=== PATIENT | female | born 1935 | race Caucasian/White ===

== ENCOUNTER 2021-01-15 12:23 | Inpatient (IN) ==
[2021-01-15] MEDS ORDERED: DILTIAZEM 50 MG/10 ML VIAL IV STA (13:44)
[2021-01-15 13:48] LABS: Basophils % 0.4 % (0.0-0.8); Eosinophils # 0.1 10*3/uL (0.0-0.87); Eosinophils % 0.7 % (0.00-10.9); Hematocrit 42.6 VOL% (35.7-47.0); Hemoglobin 13.6 GM/DL (12.0-16.0); Immature Granulocytes % 0.5 %; Immature Granulocytes Absolute 0.05 #; Lymphocytes # 2.9 10*3/uL (1.4-4.0); Mean Corpuscular HGB Conc 31.9 GM/DL (32-36); Mean Corpuscular Volume 94.9 FL (87-102); Mean Platelet Volume 11.8 FL (9.6-12.0); Monocytes % 7.8 % (1.7-12.7); Neutrophils % 63.6 % (38.7-73.9); Platelet Count 272 T/CUMM (130-400); Red Blood Count 4.49 MC/CUMM (3.8-5.5); Red Cell Distribution Width 13.2 % (9.3-17.3); White Blood Count 10.7 T/CUMM (4-12)
[2021-01-15 13:57] LABS: PT Patient Result 10.9 SECS (10.5-12.0)
[2021-01-15] MEDS ORDERED: DILTIAZEM INJ 100 MG in SODIUM CHLORIDE 0.9% 100 ML IV SCH (14:00)
[2021-01-15 14:13] LABS: Albumin 3.8 G/DL (3.4-5.0); Bilirubin,Total 0.4 MG/DL (0.2-1.0); Calcium 9.4 MG/DL (8.5-10.1); Osmolality,Calculated 275.7 MOS/KG (273-304); Potassium 4.6 MMOL/L (3.5-5.1); Thyroid Stimulating Hormone 1.64 uIU/ml (0.358-3.74); Total Protein 6.8 G/DL (6.4-8.2)
[2021-01-15] MEDS ORDERED: MAGNESIUM SULF RIDER 4 GM/100 ML PREMIX IV PRN (14:35)
[2021-01-15] MEDS ORDERED: MAGNESIUM SULF RIDER 2 GM/50 ML PREMIX IV PRN (14:35)
[2021-01-15] MEDS ORDERED: diphenhydrAMINE CAP 25 MG CAPSULE PO PRN (14:57)
[2021-01-15] MEDS ORDERED: ZALEPLON 5 MG CAPSULE PO PRN (14:57)
[2021-01-15] MEDS ORDERED: SIMETHICONE CHEW 125 MG TABLET PO PRN (14:57)
[2021-01-15] MEDS ORDERED: ONDANSETRON 4 MG/2 ML VIAL IV PRN (14:57)
[2021-01-15] MEDS ORDERED: SODIUM CHLORIDE 0.45% 1,000 ML IV SCH (15:00)
[2021-01-15] MEDS ORDERED: DIGOXIN 0.5 MG/2 ML AMP IV STA (15:01)
[2021-01-15] MEDS: ASCORBIC ACID 500 MG TABLET PO SCH ×2 (17:00→21:51)
[2021-01-15] MEDS: DILTIAZEM 30 MG TABLET PO SCH ×2 (17:01→17:37)
[2021-01-15] MEDS ORDERED: traMADol 50 MG TABLET PO PRN (17:01)
[2021-01-15] MEDS ORDERED: LACTULOSE 20 GM/30 ML UDCUP PO PRN (17:40)
[2021-01-15 17:44] LABS: Bilirubin,Urine Negative (Negative); Blood, Urine Small mg/dL (Negative); Glucose,Urine (UA) Negative (Negative); Ketones,Urine Negative (Negative); Nitrite,Urine Negative (Negative); Protein,Urine Negative; RBC,Urine 1 /HPF (0-4); Urine Appearance CLEAR (Clear); Urine Color Colorless (Yellow); Urine Specific Gravity 1.004 (1.001-1.035); Urine Urobilinogen < 2.0 EU/DL (0.2-1.0)
[2021-01-16] MEDS: DILTIAZEM 30 MG TABLET PO SCH ×5 (01:22→17:00)
[2021-01-16 05:34] LABS: Basophils % 0.5 % (0.0-0.8); Eosinophils # 0.1 10*3/uL (0.0-0.87); Eosinophils % 0.9 % (0.00-10.9); Hematocrit 40.8 VOL% (35.7-47.0); Hemoglobin 13.2 GM/DL (12.0-16.0); Immature Granulocytes % 0.2 %; Immature Granulocytes Absolute 0.02 #; Lymphocytes # 3.2 10*3/uL (1.4-4.0); Lymphocytes % 36.4 % (21.3-54.2); Mean Corpuscular HGB Conc 32.4 GM/DL (32-36); Mean Corpuscular Volume 92.5 FL (87-102); Mean Platelet Volume 11.6 FL (9.6-12.0); Monocytes % 7.6 % (1.7-12.7); Neutrophils % 54.4 % (38.7-73.9); Platelet Count 236 T/CUMM (130-400); Red Blood Count 4.41 MC/CUMM (3.8-5.5); Red Cell Distribution Width 13.1 % (9.3-17.3); White Blood Count 8.7 T/CUMM (4-12)
[2021-01-16 06:04] LABS: Calcium 9.5 MG/DL (8.5-10.1); Osmolality,Calculated 282.1 MOS/KG (273-304); Potassium 4.3 MMOL/L (3.5-5.1)
[2021-01-16 06:20] LABS: Alanine Aminotransferase 29 U/L (13-56); Albumin 3.8 G/DL (3.4-5.0); Alkaline Phosphatase 71 U/L (45-117); Aspartate Amino Transferase 17 U/L (0-37); Bilirubin,Total < 0.39 MG/DL (0.2-1.0); Blood Urea Nitrogen 16 MG/DL (7-18); Calcium 9.6 MG/DL (8.5-10.1); Carbon Dioxide 26 MMOL/L (21-32); Estimated Glom Filtration Rate 68 ML/MIN; Glucose 83 MG/DL (74-106); Osmolality,Calculated 282.1 MOS/KG (273-304); Potassium 4.2 MMOL/L (3.5-5.1); Sodium 142 MMOL/L (136-145)
[2021-01-16] MEDS: ASPIRIN CHEW 81 MG TABLET PO SCH (08:31)
[2021-01-16] MEDS: PANTOPRAZOLE 40 MG TABLET PO SCH (08:31)
[2021-01-16] MEDS: ASCORBIC ACID 500 MG TABLET PO SCH ×2 (08:32→21:30)
[2021-01-16] MEDS: SOTALOL 80 MG TABLET PO SCH ×2 (13:06→21:29)
[2021-01-17] MEDS: DILTIAZEM 30 MG TABLET PO SCH (00:51)
[2021-01-17 06:28] LABS: Basophils # 0.1 10*3/uL (0.0-0.2); Basophils % 0.7 % (0.0-0.8); Eosinophils # 0.1 10*3/uL (0.0-0.87); Eosinophils % 1.5 % (0.00-10.9); Hematocrit 40.8 VOL% (35.7-47.0); Immature Granulocytes % 0.3 %; Immature Granulocytes Absolute 0.02 #; Lymphocytes # 2.6 10*3/uL (1.4-4.0); Lymphocytes % 34.7 % (21.3-54.2); Mean Corpuscular HGB Conc 31.9 GM/DL (32-36); Mean Corpuscular Volume 94.4 FL (87-102); Mean Platelet Volume 11.7 FL (9.6-12.0); Monocytes % 8.4 % (1.7-12.7); Neutrophils % 54.4 % (38.7-73.9); Platelet Count 237 T/CUMM (130-400); Red Blood Count 4.32 MC/CUMM (3.8-5.5); Red Cell Distribution Width 13.2 % (9.3-17.3); White Blood Count 7.5 T/CUMM (4-12)
[2021-01-17 07:02] LABS: Calcium 9.3 MG/DL (8.5-10.1); Osmolality,Calculated 280.3 MOS/KG (273-304)
[2021-01-17] MEDS: DILTIAZEM CD 120 MG CAPSULE PO SCH (08:39)
[2021-01-17] MEDS: ASPIRIN CHEW 81 MG TABLET PO SCH (08:39)
[2021-01-17] MEDS: PANTOPRAZOLE 40 MG TABLET PO SCH (08:40)
[2021-01-17] MEDS: SOTALOL 80 MG TABLET PO SCH (08:40)
[2021-01-17] MEDS: ASCORBIC ACID 500 MG TABLET PO SCH ×3 (08:40→22:26)
[2021-01-17] MEDS ORDERED: DEXTROSE 5% NACL 0.45% 1,000 ML IV SCH (09:30)
[2021-01-17] MEDS: FLECAINIDE 50 MG TABLET PO SCH ×2 (12:22→22:26)
[2021-01-18 05:25] LABS: Basophils # 0.1 10*3/uL (0.0-0.2); Basophils % 0.6 % (0.0-0.8); Eosinophils # 0.1 10*3/uL (0.0-0.87); Eosinophils % 0.9 % (0.00-10.9); Hematocrit 39.8 VOL% (35.7-47.0); Immature Granulocytes % 0.3 %; Immature Granulocytes Absolute 0.03 #; Lymphocytes # 3.2 10*3/uL (1.4-4.0); Lymphocytes % 32.4 % (21.3-54.2); Mean Corpuscular HGB Conc 32.7 GM/DL (32-36); Mean Corpuscular Volume 93.2 FL (87-102); Mean Platelet Volume 11.8 FL (9.6-12.0); Monocytes % 7.4 % (1.7-12.7); Neutrophils % 58.4 % (38.7-73.9); Platelet Count 230 T/CUMM (130-400); Red Blood Count 4.27 MC/CUMM (3.8-5.5); Red Cell Distribution Width 13.1 % (9.3-17.3); White Blood Count 9.8 T/CUMM (4-12)
[2021-01-18 05:51] LABS: Calcium 9.6 MG/DL (8.5-10.1); Osmolality,Calculated 283.3 MOS/KG (273-304); Potassium 4.3 MMOL/L (3.5-5.1)
[2021-01-18] MEDS: ASCORBIC ACID 500 MG TABLET PO SCH ×2 (08:00→21:58)
[2021-01-18] MEDS: ASPIRIN CHEW 81 MG TABLET PO SCH (08:00)
[2021-01-18] MEDS: DILTIAZEM CD 120 MG CAPSULE PO SCH (08:00)
[2021-01-18] MEDS: FLECAINIDE 50 MG TABLET PO SCH ×2 (08:00→21:58)
[2021-01-18] MEDS: PANTOPRAZOLE 40 MG TABLET PO SCH (08:05)
[2021-01-18] MEDS ORDERED: MAGNESIUM SULF RIDER 2 GM/50 ML PREMIX IV ONE (11:11)
[2021-01-19 06:37] LABS: Basophils % 0.4 % (0.0-0.8); Eosinophils # 0.2 10*3/uL (0.0-0.87); Eosinophils % 2.2 % (0.00-10.9); Hematocrit 36.5 VOL% (35.7-47.0); Immature Granulocytes % 0.3 %; Immature Granulocytes Absolute 0.02 #; Lymphocytes # 3.2 10*3/uL (1.4-4.0); Lymphocytes % 41.4 % (21.3-54.2); Mean Corpuscular HGB Conc 32.9 GM/DL (32-36); Mean Corpuscular Volume 92.2 FL (87-102); Mean Platelet Volume 12.1 FL (9.6-12.0); Monocytes % 7.9 % (1.7-12.7); Neutrophils % 47.8 % (38.7-73.9); Platelet Count 214 T/CUMM (130-400); Red Blood Count 3.96 MC/CUMM (3.8-5.5); Red Cell Distribution Width 13.3 % (9.3-17.3); White Blood Count 7.8 T/CUMM (4-12)
[2021-01-19 07:05] LABS: Calcium 8.8 MG/DL (8.5-10.1); Osmolality,Calculated 282.3 MOS/KG (273-304); Potassium 3.7 MMOL/L (3.5-5.1)
[2021-01-19 08:05] VITALS: BP 110/56
[2021-01-19] MEDS: ASCORBIC ACID 500 MG TABLET PO SCH (08:38)
[2021-01-19] MEDS: ASPIRIN CHEW 81 MG TABLET PO SCH (08:38)
[2021-01-19] MEDS: FLECAINIDE 50 MG TABLET PO SCH (08:38)
[2021-01-19] MEDS: PANTOPRAZOLE 40 MG TABLET PO SCH (08:39)
[2021-01-19] MEDS: DILTIAZEM CD 120 MG CAPSULE PO SCH (08:39)
== END 2021-01-19 10:29 | disposition home or self-care (01) | DRG 309 ==
LOC: N.ED 12:23 → N.EDINP 12:23 → N.TELEN 16:18
PROVIDERS: ADMIT Internal Medicine Interventional Cardiology; ATTEND Internal Medicine Interventional Cardiology